=== PATIENT | male | born 1985 | race African-American/Black ===

== ENCOUNTER 2017-03-10 23:53 | Observation (INO) | payer BC, OTHER ==
--- NOTE | 2017-03-11 00:17 | PDOC ---
History of Present Illness - General History Source: Patient Exam Limitations: No Limitations - History of Present Illness Initial Comments: 03/11/17 00:27 The patient is a 31 year old male with a significant past medical history of smoking, who presents to the emergency department with palpitations and shortness of breath for 30 minutes. The patient states that his symptoms onset after drinking ice water and getting a brain freeze. He states that his palpitations are left sided, non-radiating, and unaccompanied by any chest pain or any other kind of pain. The patient notes that he has never experienced similar symptoms before. Patient has seen Dr. Pedro Silva before but his PMD is unaffiliated. FAMILY HISTORY: HTN, Diabetes SOCIAL HISTORY: Current smoker 2-3ppd. Denies EtOH and/or recreational drug use. <Coleman Suarez - Last Filed: 03/11/17 00:31> - General History Source: Patient Exam Limitations: No Limitations <Maykel Bernard - Last Filed: 03/11/17 05:49> - General Stated Complaint: CHEST PAIN Time Seen by Provider: 03/11/17 00:11 Past History <Coleman Suarez - Last Filed: 03/11/17 00:31> <Maykel Bernard - Last Filed: 03/11/17 05:49> - Past Medical History Allergies/Adverse Reactions: Allergies Allergy/AdvReac Type Severity Reaction Status Date / Time No Known Allergies Allergy Verified 03/11/17 00:14 Home Medications: Ambulatory Orders Unobtainable [Unobtainable] 03/11/17 Review of Systems - Review of Systems Able to Perform ROS?: Yes Comments:: 03/11/17 00:27 CONSTITUTIONAL: Absent: fever, chills, diaphoresis, generalized weakness, malaise, loss of appetite HEENT: Absent: rhinorrhea, nasal congestion, throat pain, throat swelling, difficulty swallowing, mouth swelling, ear pain, eye pain, visual Changes CARDIOVASCULAR: Present: Palpitations Absent: chest pain, syncope, ightheadedness, peripheral edema RESPIRATORY: Present: shortness of breath Absent: cough, dyspnea with exertion, orthopnea, wheezing, stridor, hemoptysis GASTROINTESTINAL: Absent: abdominal pain, abdominal distension, nausea, vomiting, diarrhea, constipation, melena, hematochezia GENITOURINARY: Absent: dysuria, frequency, urgency, hesitancy, hematuria, flank pain, genital pain MUSCULOSKELETAL: Absent: myalgia, arthralgia, joint swelling SKIN: Absent: rash, itching, pallor HEMATOLOGIC/IMMUNOLOGIC: Absent: easy bleeding, easy bruising, lymphadenopathy, frequent infections ENDOCRINE: Absent: unexplained weight gain, unexplained weight loss, heat intolerance, cold intolerance NEUROLOGIC: Absent: headache, focal weakness or paresthesias, dizziness, unsteady gait, seizure, mental status changes, bladder or bowel incontinence PSYCHIATRIC: Absent: anxiety, depression, suicidal or homicidal ideation, hallucinations. <Coleman Suarez - Last Filed: 03/11/17 00:31> *Physical Exam - Vital Signs Last Vital Signs Temp Pulse Resp BP Pulse Ox 98.3 F 149 H 20 144/00 98 03/11/17 00:14 03/11/17 00:14 03/11/17 00:14 03/11/17 00:14 03/11/17 00:14 - Physical Exam Comments: 03/11/17 00:28 GENERAL: Well developed, well nourished. Awake and alert. In no acute distress. HEENT: Normocephalic, atraumatic. PERRLA, EOMI. No conjunctival pallor. Sclerae are non -icteric. Moist mucous membranes. Oropharynx is clear. NECK: Supple. Full ROM. No JVD. Carotid pulses 2+ and symmetric, without bruits. No thyromegaly. No lymphadenopathy. CARDIOVASCULAR: (+) Irregularly Irregular. . No murmurs, rubs, or gallops. Distal pulses are 2+ and symmetric. PULMONARY: (+) Morbidly obese. No evidence of respiratory distress. Lungs clear to auscultation bilaterally. No wheezing, rales or rhonchi. ABDOMINAL: Soft. Non-tender. Non-distended. No rebound or guarding. No organomegaly. Normoactive bowel sounds. MUSCULOSKELETAL Normal range of motion at all joints. No bony deformities or tenderness. No CVA tenderness. EXTREMITIES: No cyanosis. No clubbing. No edema. No calf tenderness. SKIN: Warm and dry. Normal capillary refill. No rashes. No jaundice. NEUROLOGICAL: Alert, awake, appropriate. Cranial nerves 2-12 intact. No deficits to light touch and temperature in face, upper extremities and lower extremities. No motor deficits in the in face, upper extremities and lower extremities. Normoreflexic in the upper and lower extremities. Normal speech. Toes are downgoing bilaterally. Gait is normal without ataxia. PSYCHIATRIC: Cooperative. Good eye contact. Appropriate mood and affect. <Coleman Suarez - Last Filed: 03/11/17 00:31> Heart Score/ECG Review - ECG Impressions Comment:: 03/11/17 00:28 Atrial fibrillation with rapid ventricular response. Possible anterior infarct, age undetermined. T wave abnormality, consider inferior ischemia. Abnormal ECG. <Coleman Suarez - Last Filed: 03/11/17 00:31> ED Treatment Course - LABORATORY CBC & Chemistry Diagram: 03/11/17 00:20 03/11/17 00:20 <Maykel Bernard - Last Filed: 03/11/17 05:49> Medical Decision Making - Medical Decision Making 03/11/17 03:58 Dr. Bernard: The scribe's documentation has been prepared under my direction and personally reviewed by me in its entirery. I confirm that the note above accurately reflects all work, treatment, procedures, and medical decision making performed by me. <Maykel Bernard - Last Filed: 03/11/17 05:49> *DC/Admit/Observation/Transfer - Attestations Scribe Attestion: 03/11/17 00:31 ocumentation prepared by Coleman Suarez, acting as medical technologist prn for Makyel Bernard DO. <Coleman Suarez - Last Filed: 03/11/17 00:31> - Discharge Dispostion Admit: Yes <Maykel Bernard - Last Filed: 03/11/17 05:49> Diagnosis at time of Disposition: New onset a-fib - Referrals
[2017-03-11] MEDS ORDERED: dilTIAZem HCL 50 MG/10 ML - 10 ML VIAL IVPUSH ONE ×3 (00:21→03:16)
[2017-03-11] MEDS: ENOXAPARIN NA (PORCINE) 120 MG/0.8 ML DISP.SYRIN SQ SCH (00:40)
[2017-03-11] MEDS ORDERED: dilTIAZem HCL 125 MG/25 ML - 25 ML VIAL ONE (00:44)
[2017-03-11] MEDS ORDERED: ENOXAPARIN NA (PORCINE) 60 MG/0.6 ML DISP.SYRIN SQ ONE (00:44)
[2017-03-11 00:49] LABS: BASOPHIL 0.7 % (0-2.0); EOSINOPHIL 2.7 % (0-4.5); MCH 27.6 pg (25.7-33.7); MCHC 32.3 g/dl (32.0-35.9); MEAN CELL VOLUME 85.4 fl (80-96); MEAN PLT VOLUME 8.3 fl (7.5-11.1); PLATELET COUNT 297 K/MM3 (134-434); RDW 14.5 % (11.9-15.9); WHITE BLOOD COUNT 11.2 K/mm3 (4.0-10.0)
[2017-03-11 01:02] LABS: INR 1.04 (0.82-1.09); PROTHROMBIN TIME (PATIENT) 11.5 SEC (9.98-11.88)
[2017-03-11 01:12] LABS: ALBUMIN 4.1 g/dl (3.4-5.0); ANION GAP 10 (8-16); BILIRUBIN,TOTAL 0.2 mg/dL (0.2-1.0); CO2 27 mmol/L (21-32); GLUCOSE,RANDOM 110 mg/dL (74-106); MAGNESIUM 2.2 mg/dL (1.8-2.4); SGOT/AST 30 U/L (15-37); SGPT/ALT 57 U/L (12-78); TOT PROT 7.7 g/dl (6.4-8.2)
[2017-03-11 01:14] LABS: ALK PHOS 92 U/L (45-117); TROPONIN I < 0.02 ng/ml (0.00-0.05)
[2017-03-11] MEDS ORDERED: DIGOXIN 0.5 MG/2 ML AMPUL IVPUSH ONE ×2 (01:38→03:48)
[2017-03-11] MEDS ORDERED: DIGOXIN 0.5 MG/2 ML AMPUL ONE ×2 (01:52→03:53)
[2017-03-11 08:12] VITALS: BMI 48.4
--- NOTE | 2017-03-11 09:24 | CON.CARD ---
Consult Consult Specialty:: Cardiology Referred by:: Dr. Deluca Reason for Consultation:: Rapid Atrial Fibrillation - History of Present Illness Chief Complaint: Palpitations History of Present Illness: 31M admitted with rapid atrial fibrillation. Reports drinking 4 cups of Vodka yesterday and then drinking a very cold glass of water followed by onset of palpitations. Denied CP, SOB or syncope. In ER, found to have AF at 139bpm. Given IV Cardizem and dig with slowing of rate. Reports long history of palpitations and previous monitors that have not captured arrhythmia. He snores. His exercise capacity is unlimited. 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: Alzheimer's, CVA, Dementia, Migraine, Multiple Sclerosis, Peripheral Neuropathy, Parkinson's, Seizure, Syncope, TIA, Vertigo, Other Cardio/Vascular: No: AFIB, Aneurysm, Aortic Insufficiency, Aortic Stenosis, CAD , CHF, Deep Vein Thrombosis, HTN, Hyperlipdemia, [place], Mitral Insufficiency, Mitral Stenosis, Murmur, Pulmonary Hypertension, Other Pulmonary: No: Asthma, Bronchitis, Cancer, COPD, O2 Dependent, Pneumonia, Previously Intubated, Pulmonary Embolus, Pulmonary Fibrosis, Sleep Apnea, Other Gastrointestinal: Yes: GERD Hepatobiliary: No: Cirrhosis, Cholelithiasis, Cholecystitis, Choledocholithiasis , Hepatitis A, Hepatitis B, Hepatitis C, Other Renal/: No: Renal Failure, Renal Inusuff, BPH, Cancer, Hematuria, Hemodialysis , Neurogenic Bladder, Renal Calculi, UTI, Other Heme/Onc: No: Anemia, B12 Deficiency, Bleeding Disorder, Cancer, Current Chemotherapy, Current Radiation Therapy, Hemochromatosis, Hypercoaguable State, Myeloproliferative Synd, Sickle Cell Disease, Sickle Cell Trait, Thrombocytopenia, Other Infectious Disease: No: AIDS, C-Diff, Herpes Zoster, HIV, MRSA, STD's, Tuberculosis, VREF, Other Psych: No: Addictions, Anxiety, Bipolar, Depression, Panic, Psychosis, Schizophrenia, Other Musculoskeletal: No: Bursitis, Chronic low back pain, Hemiparesis, Hemiplegia, Osteoarthritis, Paraplegia, Other Rheumatology: No: Fibromyalgia, Gout, Lupus, Rheumatoid Arthritis, Sarcoidosis, Vasculitis, Other Dermatology: No: Basal Cell, Cellulitis, Eczema, Melanoma, Psoriasis, Squamous Cell, Other - Past Surgical History Past Surgical History: No: None, AAA Repair, AICD, Amputation, Appendectomy, Arthrosocopy, AV Fistula/Graft, Bariatric Surgery, Breast Biopsy, Bypass, CABG, Carotid Endarterectomy, Cataract Removal, Cholecystectomy, Colectomy, Colonoscopy, Colostomy, Craniotomy, , Cystectomy, Hernia Repair, Hysterectomy, Ileal Conduit, Ileosotomy, Joint Replacement, Kidney Transplant, Laminectomy, Liver Transplant, Mastectomy, Nephrectomy, Oopherectomy, Orchiectomy, Permanent Pacemaker, Prostatectomy, Splenectomy, Stent, Thoracotomy , TURP, Tonsillectomy, Tubal Ligation, Upper Endoscopy, Valve Replacement, Vasectomy, Vein Stripping/Ligation - Alcohol/Substance Use Hx Alcohol Use: Yes (some drinking today) History of Substance Use: reports: None - Smoking History Smoking history: Current every day smoker Have you smoked in the past 12 months: Yes Aproximately how many cigarettes per day: 20 - Social History Usual Living Arrangement: With Significant Other ADL: Independent Home Medications - Allergies Allergies/Adverse Reactions: Allergies Allergy/AdvReac Type Severity Reaction Status Date / Time No Known Allergies Allergy Verified 03/11/17 00:14 - Home Medications Home Medications: Ambulatory Orders Unobtainable [Unobtainable] 03/11/17 Family Disease History - Family Disease History Family History: Unremarkable (non-contributory to this presentation) Review of Systems Findings/Remarks: See HPI - Review of Systems Constitutional: denies: No Symptoms, Chills, Diaphoresis, Fever, Lethargy, Loss of Appetite, Malaise, Night Sweats, Unintentional Wgt. Loss, Weakness, Other Eyes: denies: No Symptoms, Blind Spots, Blurred Vision, Double Vision, Eye Pain , Floaters, Photophobia, Recent Change in Vision, Other HENT: denies: No Symptoms, Difficult Swallowing, Ear Discharge, Ear Pain, Epistaxis, Gingival Bleeding, Hearing Loss, Mouth Swelling, Nasal Congestion, Ocular Prosthesis, Throat Pain, Toothache, Ringing in Ears, Other Neck: denies: No Symptoms, Decreased ROM, Lumps, Pain on Movement, Stiffness, Swollen Glands, Tenderness, Other Cardiovascular: reports: Palpitations Respiratory: denies: No Symptoms, Cough, Exercise Intolerance, Hemoptysis, Orthopnea, PND, Snoring, SOB, SOB on Exertion, Wheezing, Other Gastrointestinal: denies: No Symptoms, Abdominal Pain, Bloating, Constipation, Diarrhea, Dysphagia, Indigestion, Melena, Nausea, Rectal Bleeding, Vomiting, Vomiting Blood, Other Genitourinary: denies: No Symptoms, Burning, Discharge, Dysuria, Flank Pain, Frequency, Hematuria, Incontinence, Lesions, Menses, Pain, Testicular Mass, Testicular Pain, Testicular Swelling, Urgency, Vaginal Bleeding, Other Breasts: denies: No Symptoms Reported, See HPI, Breast Implants, Discharge from Nipple, Lumps, Pain, Skin Changes, Other Musculoskeletal: denies: No Symptoms, Back Pain, Crepitus, Decreased ROM, Extremity Pain, Joint Pain, Joint Swelling, Muscle Pain, Muscle Cramps, Muscle Weakness, Other Integumentary: denies: No Symptoms, Blister, Bruising, Change in Color, Eczema, Erythema, Incision, Lesions, Lump, Pallor, Pruritis, Rash, Wound, Other Neurological: denies: No Symptoms, Change in LOC, Change in Speech, Confusion, Dizziness, Headache, Incoordination, Numbness, Parasthesia, Pre-Existing Deficit , Seizure, Syncope, Tremors, Unsteady Gait, Weakness, Other Endocrine: denies: No Symptoms, Excessive Sweating, Flushing, Increased Hunger, Increased Thirst, Intolerance to Cold, Intolerance to Heat, Unexplained Weight Gain, Unexplained Weight Loss, Other Hematology/Lymphatic: denies: No Symptoms, Easily Bruised, Excessive Bleeding, Swollen Glands, Other Psychiatric: denies: No Symptoms, Altered Sleep Pattern, Anxiety, Depression, Hallucinations, Panic, Paranoia, Suicidal, Other - Risk Factors Known Risk Factors: Yes: Smoking Vital Signs: Vital Signs Temperature 97.8 F 03/11/17 07:50 Pulse Rate 112 H 03/11/17 07:50 Respiratory Rate 22 03/11/17 06:00 Blood Pressure 136/64 03/11/17 07:50 O2 Sat by Pulse Oximetry (%) 100 03/11/17 05:07 Constitutional: Yes: No Distress, Calm Eyes: Yes: Conjunctiva Clear, EOM Intact HENT: Yes: Atraumatic, Normocephalic Neck: Yes: Supple, Trachea Midline Respiratory: Yes: CTA Bilaterally Gastrointestinal: Yes: Soft, Abdomen, Obese JVD: No Carotid Bruit: No PMI: Non-Displaced Heart Sounds: Yes: S1, S2 Edema: No Neurological: Yes: Alert, Oriented ...Motor Strength: WNL Psychiatric: Yes: WNL - Other Data Labs, Other Data: INR, PTT INR 1.04 (0.82-1.09) 03/11/17 00:20 Laboratory Tests 03/11/17 03/11/17 03/11/17 00:20 00:20 00:20 WBC 11.2 H Hgb 14.3 Hct 44.2 Plt Count 297 INR 1.04 D-Dimer 206 Sodium 141 Potassium 3.9 BUN 12 Creatinine 1.0 Creat Clearance w eGFR > 60 Random Glucose 110 H Calcium 9.0 Magnesium 2.2 Total Bilirubin 0.2 AST 30 ALT 57 Alkaline Phosphatase 92 Creatine Kinase 224 Troponin I < 0.02 Total Protein 7.7 Albumin 4.1 AF 139bpm, NSST changes Echo: Pending Imaging - Results X-ray: Image Reviewed EKG: Image Reviewed Problem List - Problems (1) New onset a-fib Code(s): I48.91 - UNSPECIFIED ATRIAL FIBRILLATION (2) Sleep apnea Code(s): G47.30 - SLEEP APNEA, UNSPECIFIED Qualifiers: Sleep apnea type: unspecified type Qualified Code(s): G47.30 - Sleep apnea, unspecified Assessment/Plan IMP: New onset AF likely provoked by ETOH, component of dehydration. Possibly vagally mediated from acute ingestion of Ice Water Suspected Chronic Obstructive Sleep Apnea REC: 1. New onset AF: -Start oral rate control agent: Cardizem 30mg PO Q6h -ASA daily (CHADS2-Vasc score = 0) -Echo today to assess LV function. -TSH -UTOX (if negative for cocaine--patient denies use-- then can switch to Toprol XL) -Continue tele: rates are improved, but need to observe response to oral agents. Suspect he will convert to NSR within next 24-48 hours. -Oral hydration. 2. Suspected TIARA: -Outpatient sleep study Dispo: If rates are controlled, would be acceptable to discharge in AM tomorrow with ASA and extended release Cardizem CD OR Toprol XL (pending Utox) He could then follow up closely as outpatient later this week.
[2017-03-11] MEDS: dilTIAZem HCL 30 MG TABLET (FP) PO SCH ×2 (09:35→13:50)
[2017-03-11] MEDS ORDERED: ASPIRIN 81 MG CHEWABLE TABLETS PO SCH (10:00)
[2017-03-11 10:20] LABS: THYROID STIMULATING HORMONE 2.13 uIU/ml (0.358-3.74); TROPONIN I < 0.02 ng/ml (0.00-0.05)
--- NOTE | 2017-03-11 10:44 | EKG ---
Test Reason : Blood Pressure : / mmHG Vent. Rate : 139 BPM Atrial Rate : 147 BPM P-R Int : 000 ms QRS Dur : 092 ms QT Int : 290 ms P-R-T Axes : 000 049 -23 degrees QTc Int : 441 ms ATRIAL FIBRILLATION WITH RAPID VENTRICULAR RESPONSE POSSIBLE ANTERIOR INFARCT , AGE UNDETERMINED T WAVE ABNORMALITY, CONSIDER INFERIOR ISCHEMIA ABNORMAL ECG Confirmed by ZULY MAO MD ([id number]) on 03/11/2017 10:44:24 AM Referred By: Confirmed By:ZULY MAO MD
[2017-03-11 11:47] LABS: URINE MARIJUANA THC NEGATIVE ng/ml (CUTOFF=50)
[2017-03-11 13:51] LABS: MCH 27.6 pg (25.7-33.7); MCHC 32.3 g/dl (32.0-35.9); MEAN CELL VOLUME 85.5 fl (80-96); MEAN PLT VOLUME 8.6 fl (7.5-11.1); NEUTROPHILS 58.5 % (42.8-82.8); PLATELET COUNT 281 K/MM3 (134-434); RDW 14.3 % (11.9-15.9); WHITE BLOOD COUNT 9.7 K/mm3 (4.0-10.0)
[2017-03-11] MEDS ORDERED: METOPROLOL SUCCINATE 25 MG TAB.SR.24H (FP) PO SCH (15:45)
--- NOTE | 2017-03-11 21:47 | HP ---
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: Alzheimer's, CVA, Dementia, Migraine, Multiple Sclerosis, Peripheral Neuropathy, Parkinson's, Seizure, Syncope, TIA, Vertigo, Other Cardiovascular: No: AFIB, Aneurysm, Aortic Insufficiency, Aortic Stenosis, CAD, CHF, Deep Vein Thrombosis, HTN, Hyperlipdemia, [place], Mitral Insufficiency, Mitral Stenosis, Murmur, Pulmonary Hypertension, Other Pulmonary: No: Asthma, Bronchitis, Cancer, COPD, O2 Dependent, Pneumonia, Previously Intubated, Pulmonary Embolus, Pulmonary Fibrosis, Sleep Apnea, Other Gastrointestinal: Yes: GERD Hepatobiliary: No: Cirrhosis, Cholelithiasis, Cholecystitis, Choledocholithiasis , Hepatitis A, Hepatitis B, Hepatitis C, Other Renal/: No: Renal Failure, Renal Inusuff, BPH, Cancer, Hematuria, Hemodialysis , Neurogenic Bladder, Renal Calculi, UTI, Other Heme/Onc: No: Anemia, B12 Deficiency, Bleeding Disorder, Cancer, Current Chemotherapy, Current Radiation Therapy, Hemochromatosis, Hypercoaguable State, Myeloproliferative Synd, Sickle Cell Disease, Sickle Cell Trait, Thrombocytopenia, Other Infectious Disease: No: AIDS, C-Diff, Herpes Zoster, HIV, MRSA, STD's, Tuberculosis, VREF, Other Psych: No: Addictions, Anxiety, Bipolar, Depression, Panic, Psychosis, Schizophrenia, Other Musculoskeletal: No: Bursitis, Chronic low back pain, Hemiparesis, Hemiplegia, Osteoarthritis, Paraplegia, Other Rheumatology: No: Fibromyalgia, Gout, Lupus, Rheumatoid Arthritis, Sarcoidosis, Vasculitis, Other Dermatology: No: Basal Cell, Cellulitis, Eczema, Melanoma, Psoriasis, Squamous Cell, Other - Past Surgical History Past Surgical History: No: None, AAA Repair, AICD, Amputation, Appendectomy, Arthrosocopy, AV Fistula/Graft, Bariatric Surgery, Breast Biopsy, Bypass, CABG, Carotid Endarterectomy, Cataract Removal, Cholecystectomy, Colectomy, Colonoscopy, Colostomy, Craniotomy, , Cystectomy, Hernia Repair, Hysterectomy, Ileal Conduit, Ileosotomy, Joint Replacement, Kidney Transplant, Laminectomy, Liver Transplant, Mastectomy, Nephrectomy, Oopherectomy, Orchiectomy, Permanent Pacemaker, Prostatectomy, Splenectomy, Stent, Thoracotomy , TURP, Tonsillectomy, Tubal Ligation, Upper Endoscopy, Valve Replacement, Vasectomy, Vein Stripping/Ligation - Smoking History Smoking history: Current every day smoker Have you smoked in the past 12 months: Yes Aproximately how many cigarettes per day: 20 - Alcohol/Substance Use Hx Alcohol Use: Yes (some drinking today) History of Substance Use: reports: None - Social History ADL: Independent Home Medications - Allergies Allergies/Adverse Reactions: Allergies Allergy/AdvReac Type Severity Reaction Status Date / Time No Known Allergies Allergy Verified 03/11/17 00:14 - Home Medications Home Medications: Ambulatory Orders Unobtainable [Unobtainable] 03/11/17 Physical Examination Vital Signs: Vital Signs Temperature 98.4 F 03/11/17 20:33 Pulse Rate 75 03/11/17 20:33 Respiratory Rate 20 03/11/17 20:33 Blood Pressure 121/71 03/11/17 20:33 O2 Sat by Pulse Oximetry (%) 99 03/11/17 20:33 Labs: CBC, BMP 03/11/17 13:00
[2017-03-12] MEDS: ENOXAPARIN NA (PORCINE) 120 MG/0.8 ML DISP.SYRIN SQ SCH (00:47)
--- NOTE | 2017-03-12 08:16 | PN ---
Progress Note, Physician Chief Complaint: comfortable ECHO w/ normal LV fxn TELE: AF in 90s - Current Medication List Current Medications: Active Medications Metoprolol Succinate (Toprol Xl -) 50 mg PO DAILY PAM - Objective Vital Signs: Vital Signs Temperature 97.9 F 03/12/17 06:00 Pulse Rate 88 03/12/17 06:00 Respiratory Rate 20 03/12/17 06:00 Blood Pressure 109/66 03/12/17 06:00 O2 Sat by Pulse Oximetry (%) 99 03/11/17 21:00 Constitutional: Yes: Calm Cardiovascular: Yes: Pulse Irregular Respiratory: Yes: CTA Bilaterally Gastrointestinal: Yes: Soft, Abdomen, Obese Edema: No Neurological: Yes: Alert, Oriented ...Motor Strength: WNL Labs: CBC, BMP 03/11/17 13:00 INR, PTT INR 1.04 (0.82-1.09) 03/11/17 00:20 Laboratory Tests 03/11/17 03/11/17 03/11/17 00:20 09:31 11:00 Troponin I < 0.02 < 0.02 TSH 2.13 Opiates Screen Negative Methadone Screen Negative Barbiturate Screen Negative Phencyclidine Screen Negative Ur Amphetamines Screen Negative MDMA (Ecstasy) Screen Negative Benzodiazepines Screen Negative Cocaine Screen Negative U Marijuana (THC) Screen Negative - ....Imaging EKG: Image Reviewed Problem List - Problems (1) New onset a-fib Code(s): I48.91 - UNSPECIFIED ATRIAL FIBRILLATION (2) Sleep apnea Code(s): G47.30 - SLEEP APNEA, UNSPECIFIED Qualifiers: Sleep apnea type: unspecified type Qualified Code(s): G47.30 - Sleep apnea, unspecified Assessment/Plan IMP: New onset AF likely provoked by ETOH, component of dehydration. Possibly vagally mediated from acute ingestion of Ice Water Suspected Chronic Obstructive Sleep Apnea REC: 1. New onset AF: -Increase Toprol XL 50mg daily -ASA 162mg daily (CHADS2-VASC score =0; normal LV function) -Negative Utox and normal TSH 2. Suspected TIARA: -Outpatient sleep study DISPO: Plan for discharge later this afternoon on ASA 162mg and Toprol XL 50mg daily. He should f/u with us early next week for ECG. If remains in AF, can plan outpatient cardioversion.
[2017-03-12] MEDS ORDERED: ASPIRIN 81 MG CHEWABLE TABLETS PO SCH (10:00)
[2017-03-12] MEDS ORDERED: METOPROLOL SUCCINATE 50 MG TAB.SR.24H (FP) PO SCH (10:00)
[2017-03-12 14:06] VITALS: BP 124/65; PULSE 98; TEMP 97.8
== END 2017-03-12 16:37 | disposition home or self-care (01) ==
LOC: JER 23:53 → JERBED 03-11 03:57 → INTOOBSV 03-11 03:57 → J4W 03-11 05:51
PROVIDERS: ADMIT Internal Medicine; ATTEND Internal Medicine
PROC: 3E033GC Introduction of Other Therapeutic Substance into Peripheral Vein, Percutaneous Approach (ICD-10-PCS; principal; 2017-03-11)
DX: I48.91 Unspecified atrial fibrillation (principal); G47.30 Sleep apnea, unspecified; F17.210 Nicotine dependence, cigarettes, uncomplicated
CPT/HCPCS: 36415; 71010-TC; 80053; 80307; 82550; 82553; 83735; 84443; 84484; 85025; 85379; 85610; 93005; 93010; 93306-TC; 99285-25; G0378